=== PATIENT | male | born 1965 | race Caucasian/White ===

== ENCOUNTER 2018-03-14 07:01 | Emergency (ER) | payer OTHER ==
[~2018-03-14] VITALS: Ht 180.3 cm; Wt 110.3 kg
[~2018-03-14 07:01] MED LIST: AMOXICILLIN500 MG PO; DEPAKOTE500 MG PO
[2018-03-14] MEDS ORDERED: MOTRIN800 MG PO (09:27)
[2018-03-14 09:58] VITALS: BP 122/84
== END 2018-03-14 10:04 | disposition home or self-care (01) ==
LOC: EME 07:01
DX: S93.402A Sprain of unspecified ligament of left ankle, initial encounter (principal); M54.2 Cervicalgia; W18.49XA Other slipping, tripping and stumbling without falling, initial encounter; Y92.480 Sidewalk as the place of occurrence of the external cause; F31.9 Bipolar disorder, unspecified; F17.200 Nicotine dependence, unspecified, uncomplicated; Z59.0 Homelessness; Z87.820 Personal history of traumatic brain injury
CPT/HCPCS: 70450; 72125; 73610; 99281; 99285